=== PATIENT | female | born 1955 | race Caucasian/White ===

== ENCOUNTER → 2017-06-07 | Outpatient (CLI) | payer BC ==
--- NOTE | 2017-06-07 13:50 | MRI ---
HISTORY: Radiculopathy. Low back pain with numbness and tingling Study: Noncontrast MRI of the lumbar spine Comparison: No priors Technique: Multiplanar multi-sequence MRI of the lumbar spine was obtained. Sagittal T1, sagittal T 2, and stir weighted images, axial T1, and axial T2 images were obtained. Findings: No fracture is seen . There is a 4 millimeter forward subluxation of L4 upon L5. Pars regions appear intact bilaterally. The conus of the cord terminates normally. 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 No paraspinous mass or fluid collection is seen . There is a heterogeneous appearance of the bone marrow without evidence of infiltrative disorder. T12 -- L1: Unremarkable L1 -- L2: Disc space narrowing with concentric disc bulge and anterior spondylosis. Mild bilateral f acet joint hypertrophy is seen. No central spinal stenosis or significant lateral foraminal stenosis is identified. L2 -- L3: Disc space narrowing with anterior spondylosis and concentric disc bulge. Bilateral facet joint and mild ligamentum flavum hypertrophy is appreciated. There is a small right-sided facet join t effusion. No central spinal stenosis is seen. There is mild bilateral foraminal stenosis. L3 -- L4: Mild concentric disc bulge with bilateral facet joint hypertrophy and ligamentum flavum hy pertrophy. There are small bilateral facet joint effusions. There are bilateral subarticular disk pr otrusions which are small. This has resulted in mild bilateral foraminal stenosis. L4 -- L5: Subluxation as noted above. There is bilateral facet joint and ligamentum flavum hypertrop hy resulting in moderate central spinal stenosis. Moderate bilateral foraminal stenosis is also appr eciated. L5 -- S1: Concentric disc bulge with bilateral facet joint hypertrophy. Small bilateral facet joint effusions are also appreciated. IMPRESSION: Multilevel abnormalities as detailed above. The most significant abnormality appears at L4-5. Reported By:
== END ==
LOC: RAD 10:25
PROVIDERS: ATTEND Family Medicine
DX: M54.17 Radiculopathy, lumbosacral region (principal)
CPT/HCPCS: 72148